=== PATIENT | male | born 1990 | race African-American/Black ===

== ENCOUNTER 2023-05-16 11:55 | Emergency (ER) | payer MEDICAID ==
[~2023-05-16] VITALS: Ht 182.9 cm; Wt 100.0 kg
[2023-05-16 12:03] VITALS: TEMP 98.6; O2SAT 100
[2023-05-16] MEDS ORDERED: IBUPROFEN 600MG TABLET PO ONE (15:15)
[2023-05-16 15:30] VITALS: BP 130/93; PULSE 86; RESP 16
[2023-05-16] MEDS ORDERED: IBUP-2029 MT (16:18)
== END 2023-05-16 16:47 | disposition home or self-care (01) ==
LOC: ER 11:55
DX: S62.606A Fracture of unspecified phalanx of right little finger, initial encounter for closed fracture (principal); W18.39XA Other fall on same level, initial encounter; Y93.89 Activity, other specified; Y92.89 Other specified places as the place of occurrence of the external cause; Y99.8 Other external cause status
CPT/HCPCS: 29130; 73130; 99283